=== PATIENT | male | born 1990 ===

== ENCOUNTER 2016-07-03 17:35 | Inpatient (IN) | payer MEDICAID ==
[~2016-07-03] VITALS: Ht 170.2 cm; Wt 58.6 kg
[2016-07-03] MEDS ORDERED: LORazepam 2 MG TABLET PO PRN (20:15)
[2016-07-03] MEDS ORDERED: ZOLPIDEM TARTRATE 10 MG TABLET PO PRN (20:15)
[2016-07-03 20:59] VITALS: BP 130/77
[2016-07-03 21:24] VITALS: BP 130/77
[2016-07-03] MEDS ORDERED: INFLUENZA VIRUS VACCINE QVS 2016-17 (3YR+)/PF 60 MCG/0.5 ML SYRINGE IM ONE (22:45)
[2016-07-04 05:55] VITALS: BP 103/60
[2016-07-04 08:27] LABS: BASOPHILS # (AUTO) 0.04 K/uL (0.00-0.20); BASOPHILS % (AUTO) 0.5 % (0.0-2.0); EOSINOPHILS # (AUTO) 0.14 K/uL (0.00-0.70); EOSINOPHILS % (AUTO) 1.67 % (1.0-6.0); HEMATOCRIT 43.5 % (41-53); HEMOGLOBIN 14.6 g/dL (13.5-17.5); LYMPHOCYTES # (AUTO) 2.5 K/uL (1.0-4.8); LYMPHOCYTES % (AUTO) 29.6 % (22.0-44.0); MEAN CORPUSCULAR HEMOGLOBIN 30.7 pg (26.0-34.0); MEAN CORPUSCULAR HGB CONC 33.6 G/dL (31.0-37.0); MEAN CORPUSCULAR VOLUME 91 fL (80-100); MONOCYTES # (AUTO) 0.7 K/uL (0.1-1.0); MONOCYTES % (AUTO) 8.4 % (2.0-9.0); NEUTROPHILS % (AUTO) 59.8 % (40.0-70.0); PLATELET COUNT (AUTO) 277 K/uL (150-450); RED BLOOD CELL COUNT(AUTO) 4.78 MIL/uL (4.50-5.90); RED CELL DISTRIBUTION WIDTH 13.8 % (11.5-14.5); WHITE BLOOD COUNT (AUTO) 8.4 K/uL (4.5-11.0)
[2016-07-04 08:33] LABS: ALANINE AMINOTRANSFERASE 14 U/L (12-78); ALBUMIN 4.1 g/dL (3.4-5.0); ANION GAP 10 mmol/L (8-16); ASPARTATE AMINOTRANSFERASE 12 U/L (15-37); BILIRUBIN,TOTAL 0.3 mg/dL (0.1-1.0); CALCIUM, TOTAL 9.3 mg/dL (8.8-10.5); CARBON DIOXIDE 26 mmol/L (22-29); CHLORIDE 103 mmol/L (98-107); CREATININE 0.63 mg/dL (0.60-1.30); GLOMERULAR FILTR. RATE CALC > 60 mL/min (>60); SODIUM SERUM 139 mmol/L (136-145); TOTAL PROTEIN, SERUM 7.4 g/dL (6.4-8.2); UREA NITROGEN, BLOOD 9 mg/dL (7-18)
[2016-07-04 08:43] LABS: HEMOGLOBIN A1C 5.2 % (4.5-6.2)
[2016-07-04 08:58] VITALS: BP 119/70
[2016-07-04 16:00] VITALS: BP 120/79
[2016-07-04] MEDS: OLANZapine 5 MG TABLET PO SCH (20:16)
[2016-07-05 05:53] VITALS: BP 108/63
[2016-07-05 08:24] VITALS: BP 129/76
[2016-07-05] MEDS: OLANZapine 5 MG TABLET PO SCH ×2 (09:10→20:34)
[2016-07-05 16:06] VITALS: BP 122/64
[2016-07-06 00:08] VITALS: BP 110/66
[2016-07-06] MEDS: OLANZapine 5 MG TABLET PO SCH ×2 (08:40→21:31)
[2016-07-06 08:48] VITALS: BP 107/62
[2016-07-06 16:19] VITALS: BP 127/71
[2016-07-07 00:10] VITALS: BP 120/68
[2016-07-07 08:53] VITALS: BP 136/70
[2016-07-07] MEDS: OLANZapine 5 MG TABLET PO SCH ×2 (09:09→20:15)
[2016-07-07 16:00] VITALS: BP 134/75
[2016-07-08 00:47] VITALS: BP 126/63
[2016-07-08] MEDS: OLANZapine 5 MG TABLET PO SCH ×2 (08:39→21:06)
[2016-07-08 08:51] VITALS: BP 129/77
[2016-07-08 18:00] VITALS: BP 117/78
[2016-07-09 00:43] VITALS: BP 112/64
[2016-07-09 08:11] VITALS: BP 123/70
[2016-07-09] MEDS: OLANZapine 5 MG TABLET PO SCH (09:21)
[2016-07-09 16:11] VITALS: BP 134/83
[2016-07-09] MEDS: OLANZapine 10 MG TABLET PO SCH (20:05)
[2016-07-09] MEDS ORDERED: LOPERAMIDE HCL 2 MG CAPSULE PO PRN (21:45)
[2016-07-10 00:57] VITALS: BP 120/85
[2016-07-10 08:22] VITALS: BP 133/88
[2016-07-10] MEDS: OLANZapine 10 MG TABLET PO SCH ×2 (08:53→20:38)
[2016-07-10 16:43] VITALS: BP 139/55
[2016-07-11 00:59] VITALS: BP 138/81
[2016-07-11 08:50] VITALS: BP 114/72
[2016-07-11] MEDS: OLANZapine 10 MG TABLET PO SCH (09:47)
[2016-07-11] MEDS ORDERED: OLAN10TA3 PO (16:19)
[2016-07-11 16:31] VITALS: BP 113/74
== END 2016-07-11 18:35 | disposition home or self-care (01) | DRG 750 ==
LOC: B2S 20:10 → EDSTATUS 20:15
PROVIDERS: ADMIT Psychiatry & Neurology Child & Adolescent Psychiatry; ATTEND Psychiatry & Neurology Child & Adolescent Psychiatry
DX: F20.0 Paranoid schizophrenia (principal); F23 Brief psychotic disorder; F94.0 Selective mutism; Z28.21 Immunization not carried out because of patient refusal; Z84.89 Family history of other specified conditions
CPT/HCPCS: 83036; 84439